=== PATIENT | male | born 1950 | race Caucasian/White ===

== ENCOUNTER → 2020-02-05 | Outpatient (CLI) | payer OTHER ==
[2020-02-05 09:34] LABS: MEAN CORP HGB 30.9 pg (26-34)
[2020-02-05 09:46] LABS: CALCIUM 9.9 mg/dL (8.4-10.5); CARBON DIOXIDE 27.7 mmol/L (20.0-32)
== END | disposition home or self-care (01) ==
LOC: EDBD 09:17 → LAB 09:17
PROVIDERS: ATTEND Nurse Practitioner Family
DX: E11.9 Type 2 diabetes mellitus without complications (principal); I10 Essential (primary) hypertension
CPT/HCPCS: 36415; 80053; 80061; 83036; 85027

== ENCOUNTER → 2021-08-18 | Outpatient (CLI) | payer OTHER ==
--- NOTE | 2021-08-18 11:57 | PCM.EKG ---
[facility] Test Date: 2021-08-18 Test Time: 11:46:13 Pat Name: BERTHA BEAUCHAMP Department: Room: Gender: M [employer] Inspector: KATHARINE : 1950 Requested By: CHINO GOMEZ Order Number: [id number] Reading MD: Measurements Intervals [place] Rate: 79 P: 12 FL: 215 QRS: 35 QRSD: 102 T: 23 QT: 448 QTc: 514 Interpretive Statements Sinus rhythm Borderline prolonged FL interval Low voltage, precordial leads Borderline T abnormalities, anterior leads Prolonged QT interval No previous ECG available for comparison Please click the below link to view image of tracing.
--- NOTE | 2021-08-18 14:10 | DIREP ---
PROCEDURE:CHEST 2 VIEWS COMPARISON:None. INDICATIONS:CP FINDINGS: LUNGS/PLEURA:Bibasilar atelectasis left greater than right. VASCULATURE:Normal. Unremarkable pulmonary vasculature. CARDIAC:Normal. No cardiac silhouette abnormality or cardiomegaly. MEDIASTINUM:Normal. No visible mass or adenopathy. BONES:Normal. No fracture or visible bony lesion. OTHER:Negative. CONCLUSION:Bibasilar atelectasis left greater than right. No consolidation pleural effusion. Dictated by: Catalino Harding MD on 08/18/2021 at 02:06 PM
--- NOTE | 2021-08-18 18:03 | DIREP ---
PROCEDURE:XRAY SHOULDER MIN 2 VWS-LT COMPARISON:None. INDICATIONS:LEFT SHOULDER PAIN WITH RADICULOPATHY FINDINGS: Two views of the left shoulder. No fracture or dislocation identified. Acromioclavicular and coracoclavicular distances are not widened. No radiopaque foreign body. CONCLUSION: Left shoulder, unremarkable. Dictated by: Aida Almanza MD on 08/18/2021 at 06:02 PM
== END | disposition home or self-care (01) ==
LOC: RAD 11:39
PROVIDERS: ATTEND Nurse Practitioner Family
DX: J98.11 Atelectasis (principal); R07.9 Chest pain, unspecified; M25.512 Pain in left shoulder
CPT/HCPCS: 71046; 93005; 73030-LT

== ENCOUNTER → 2021-10-07 | Outpatient (CLI) | payer OTHER ==
[~2021-10-07] MED LIST: LEXISCAN IV ONE
--- NOTE | 2021-10-07 12:58 | PCM.ECHO ---
APPROVED REPORT EXAM: Comprehensive 2D, Doppler, and color-flow Echocardiogram. Patient Location: OUT-PATIENT Indications Abnormal ECG 2D Dimensions LVOT Diameter 2.54 (1.8-2.4cm) LVEF(%) 69.33 (>50%) M-Mode Dimensions RVDd 1.85 (2.1-3.2cm) Left Atrium(MM) 5.30 (2.5-4.0cm) IVSd 0.95 (0.7-1.1cm) Aortic Root 3.40 (2.2-3.7cm) LVDd 6.15 (4.0-5.6cm) Aortic Cusp Exc 1.95 (1.5-2.0cm) PWd 0.95 (0.7-1.1cm) MV EPSS 0.53 (<0.5cm) IVSs 2.10 cm FS (%) 41.85 % LVDs 3.60 (2.0-3.8cm) ESV(Teich) 54.58 ml PWs 1.75 cm LVEF(%) 71.85 (>50%) Volumes Biplane 2D LV Volumes Biplane 2D LA Volumes LVEDv A4C 158.22 mL LA ESV Index LVESv A4C 48.53 mL Aortic Valve AoV Peak Gibran. 0.85 m/s AoV VTI 18.35 cm AO Peak GR. 2.90 mmHg AO Mean GR. 1.50 mmHg LVOT VTI 22.48 cm LVOT Peak Gibran. 0.86 m/s MARLENE(VTI)/BSA 6.20 cm2/m2 MARLENE (VTI) 6.20 cm2 Mitral Valve MV E Velocity 0.65m/s MR Peak Gr. 6.70mmHg MV A Velocity 0.85m/s TDI Lateral E' P. V 0.08m/s Medial E' P. V 0.13m/s Pulmonary Valve PV Peak Velocity 0.75m/s PV Peak Grad. 2.55mmHg RVOT VTI 20.15cm Tricuspid Valve TR P. Velocity 1.80m/s RAP ESTIMATE 10.00mmHg TR Peak Gr. 13.30mmHg RVSP 23.30mmHg LEFT VENTRICLE The left ventricle is normal size. The left ventricular systolic function is normal. The left ventricular ejection fraction is within the normal range. There is normal left ventricular wall thickness. There is normal LV segmental wall motion. There is no ventricular septal defect visualized. No left ventricle thrombus noted on this study. LVEF is 60-65%. RIGHT VENTRICLE The right ventricle is normal size. The right ventricular systolic function is normal. There is normal right ventricular wall thickness. ATRIA The left atrium size is normal. The right atrium size is normal. The interatrial septum is intact with no evidence for an atrial septal defect. AORTIC VALVE The aortic valve is normal in structure. There is no aortic valvular stenosis. No aortic regurgitation is present. There is no aortic valvular vegetation. MITRAL VALVE The mitral valve is normal in structure. There is no mitral valve stenosis. Mild mitral regurgitation. There is no evidence of mitral valve vegetations. TRICUSPID VALVE The tricuspid valve is normal in structure. There is no tricuspid valve stenosis. Mild tricuspid regurgitation. There is no tricuspid valve vegetations. PULMONIC VALVE Pulmonic valve is not well visualized. There is no pulmonic valvular stenosis. Moderate pulmonic regurgitation. GREAT VESSELS The aortic root is normal in size. Pulmonary artery is not well visualized. Aortic arch is not well visualized. The IVC is normal in size and collapses >50% with inspiration. PERICARDIUM There is no pericardial effusion. There is no pleural effusion. Other Information Study Quality: Fair <Conclusion> The left ventricular systolic function is normal. LVEF is 60-65%. Mild mitral regurgitation. Mild tricuspid regurgitation. Moderate pulmonic regurgitation. Electronically signed by : TIFFANY PORTILLO. 10/07/2021 12:57:16
--- NOTE | 2021-10-08 05:56 | STRESS ---
DATE OF SERVICE: 10/07/2021 DICTATOR NAME: TIFFANY PORTILLO DO CARDIAC STRESS TEST INDICATION: Chest pain. FINDINGS: Baseline EKG shows normal sinus rhythm with borderline left ventricular hypertrophy. Stress EKG shows normal sinus rhythm, unchanged from baseline. At the end of recovery, EKG shows normal sinus rhythm, unchanged from baseline. Baseline heart rate is 65 beats per minute and evelio to 71 beats per minute during stress. At the end of recovery, the heart rate is 75 beats per minute. Baseline blood pressure is 163/74 and remained the same during stress. At the end of recovery, the blood pressure is 161/65. Blood pressure and heart rate were appropriate for stress. There were no significant symptoms noted during stress. There were no arrhythmias noted during stress. EKG portion of stress test is negative for myocardial ischemia. Nuclear images were obtained with a rest dose of 9.84 mCi technetium-99 sestamibi, and a stress dose of 33.7 mCi technetium-99 sestamibi. Nuclear images reveal a moderate-sized area of reversible perfusion defect involving the inferior wall as visualized on prone images suggestive of myocardial ischemia. There is no evidence of myocardial infarction. Left ventricular ejection fraction is 64%. EDV 75 mL, ESV is 28 mL. The left ventricle is normal in size. Gated motion images shows normal wall motion across all segments of the left ventricle. TID is 1.34. There is no evidence of diaphragmatic attenuation artifact. IMPRESSION: 1. There is a moderate-sized area of reversible perfusion defect involving the inferior wall suggestive of myocardial ischemia. 2. There is no evidence of myocardial infarction. 3. This is an abnormal study. Recommend left heart catheterization. Mary HAMILTON D.O. DR: BRYAN TID: [id number] RECEIPT: [id number]
== END | disposition home or self-care (01) ==
LOC: RAD 08:09
PROVIDERS: ATTEND Internal Medicine Interventional Cardiology
DX: I08.8 Other rheumatic multiple valve diseases (principal); R94.31 Abnormal electrocardiogram [ECG] [EKG]
CPT/HCPCS: 78452; 93017; 93306; A9500; J2785

== ENCOUNTER → 2023-05-12 | Outpatient (CLI) | payer MEDICARE, OTHER ==
[~2023-05-12] MED LIST changes: +AMLO-170 PO; +ASPI-667 PO; +GLUC1TAB PO; +HYDR25TA9 PO; -LEXISCAN IV ONE; +LISI40TA10 PO; +LOVA40TA2 PO; +MELO15TA24 PO; +MULT-632 PO; +NITR0.4T26 SL; +OMEG-120 PO; +SITA1TAB11 PO
== END | disposition home or self-care (01) ==
LOC: RAD 09:19
PROVIDERS: ATTEND Nurse Practitioner Family
DX: M19.012 Primary osteoarthritis, left shoulder (principal); M19.022 Primary osteoarthritis, left elbow; M79.602 Pain in left arm
CPT/HCPCS: 73060-LT